=== PATIENT | male | born 1970 | race Two or more races ===

== ENCOUNTER 2021-09-29 17:09 | Inpatient (IN) | payer OTHER ==
[2021-09-29] MEDS ORDERED: LORazepam 2 MG/ML SDV VIAL IVPUSH ONE (23:33)
[2021-09-29] MEDS ORDERED: chlordiazePOXIDE HCL 25 MG CAPSULE PO ONE (23:35)
[2021-09-29] MEDS ORDERED: chlordiazePOXIDE HCL 25 MG CAPSULE ONE (23:36)
[2021-09-30 00:14] LABS: BASO % 0.5 % (0-2.0); EOS % 2.7 % (0-4.5); HEMOGLOBIN 10.6 GM/dL (11.7-16.9); LYMPH % 37.2 % (8-40); MCH 26.2 pg (25.7-33.7); MCHC 32.2 g/dl (32.0-35.9); MEAN CELL VOLUME 81.5 fl (80-96); MEAN PLT VOLUME 7.5 fl (7.5-11.1); MONO % 10.9 % (3.8-10.2); NEUT % 48.7 % (42.8-82.8); PLATELET COUNT 163 10^3/uL (134-434); RBC 4.06 M/mm3 (4.00-5.60); WHITE BLOOD COUNT 2.9 K/mm3 (4.0-10.0)
[2021-09-30 00:34] LABS: CHLORIDE 96 mmol/L (98-107); SODIUM 135 mmol/L (136-145)
[2021-09-30 00:36] LABS: ALBUMIN 4.1 g/dl (3.4-5.0); ANION GAP 9 MMOL/L (8-16); CALCIUM 9.2 mg/dL (8.5-10.1); CO2 31 mmol/L (21-32); GLUCOSE,RANDOM 97 mg/dL (74-106); MAGNESIUM 1.6 mg/dL (1.8-2.4)
[2021-09-30 00:39] LABS: CREATININE 0.5 mg/dL (0.55-1.3); SGOT/AST 40 U/L (15-37); SGPT/ALT 29 U/L (13-61)
[2021-09-30 00:40] LABS: BILIRUBIN,TOTAL 1.3 mg/dL (0.2-1)
[2021-09-30 00:41] LABS: TOT PROT 8.2 g/dl (6.4-8.2)
[2021-09-30 00:42] LABS: ALK PHOS 119 U/L (45-117)
[2021-09-30] MEDS ORDERED: MAGNESIUM OXIDE 400 MG TABLET (FP) PO ONE (02:53)
[2021-09-30] MEDS ORDERED: LORazepam 1 MG TABLET ONE ×3 (04:12→08:43)
[2021-09-30] MEDS ORDERED: MAGNESIUM OXIDE 400 MG TABLET (FP) ONE (04:12)
[2021-09-30] MEDS: LORazepam 1 MG TABLET PO SCH ×3 (04:15→16:58)
[2021-09-30] MEDS: LORazepam 1 MG TABLET PO PRN ×2 (04:56→08:45)
[2021-09-30] MEDS ORDERED: FOLIC ACID INJECTION - 1 MG, THIAMINE HCL 100 MG, MULTIVIT INJECTION ADULT 10 ML in SOD... IVPB ONE (05:00)
[2021-09-30] MEDS ORDERED: IBUPROFEN 400 MG TABLET (FP) PO ONE (07:34)
[2021-09-30] MEDS ORDERED: ENOXAPARIN NA (PORCINE) 40 MG/0.4 ML DISP.SYRIN SQ ONE (09:20)
[2021-09-30] MEDS ORDERED: PANTOPRAZOLE 20 MG TABLET PO ONE (09:20)
[2021-09-30] MEDS ORDERED: FOLIC ACID 1 MG TABLET (FP) ONE (09:20)
[2021-09-30] MEDS ORDERED: amLODIPine BESYLATE 10 MG TABLET (FP) ONE (09:20)
[2021-09-30] MEDS ORDERED: THIAMINE HCL 100 MG TABLET (FP) ONE (09:20)
[2021-09-30] MEDS: THIAMINE HCL 100 MG TABLET (FP) PO SCH (09:25)
[2021-09-30] MEDS: amLODIPine BESYLATE 10 MG TABLET (FP) PO SCH (09:25)
[2021-09-30] MEDS: FOLIC ACID 1 MG TABLET (FP) PO SCH (09:25)
[2021-09-30] MEDS: ENOXAPARIN NA (PORCINE) 40 MG/0.4 ML DISP.SYRIN SQ SCH (09:25)
[2021-09-30] MEDS ORDERED: PANTOPRAZOLE 20 MG TABLET PO SCH (10:00)
[2021-09-30 11:23] LABS: BASO % 0.3 % (0-2.0); EOS % 4.7 % (0-4.5); HEMATOCRIT 32.9 % (35.4-49); HEMOGLOBIN 10.8 GM/dL (11.7-16.9); LYMPH % 30.4 % (8-40); MCH 26.6 pg (25.7-33.7); MCHC 32.7 g/dl (32.0-35.9); MEAN CELL VOLUME 81.2 fl (80-96); MEAN PLT VOLUME 7.1 fl (7.5-11.1); NEUT % 53.6 % (42.8-82.8); PLATELET COUNT 148 10^3/uL (134-434); RBC 4.06 M/mm3 (4.00-5.60); RDW 19.8 % (11.9-15.9); WHITE BLOOD COUNT 3.6 K/mm3 (4.0-10.0)
[2021-09-30 11:48] LABS: BLOOD UREA NITROGEN 6.2 mg/dL (7-18); CALCIUM 9.5 mg/dL (8.5-10.1)
[2021-09-30 11:49] LABS: ALBUMIN 3.5 g/dl (3.4-5.0); MAGNESIUM 1.9 mg/dL (1.8-2.4)
[2021-09-30 11:52] LABS: CREATININE 0.5 mg/dL (0.55-1.3); PHOSPHOROUS 3.3 mg/dL (2.5-4.9)
[2021-09-30 11:54] LABS: BILIRUBIN,TOTAL 1.4 mg/dL (0.2-1)
[2021-09-30 12:02] VITALS: BMI 22.7
[2021-09-30] MEDS ORDERED: POTASSIUM CHLORIDE TABS 20 MEQ TABLET.ER (FP) PO ONE (13:35)
[2021-10-01] MEDS: SUCRALFATE 1 GM/10 ML UNIT DOSE CUPS PO SCH ×2 (00:10→09:06)
[2021-10-01] MEDS: THIAMINE HCL 100 MG TABLET (FP) PO SCH ×2 (00:10→09:05)
[2021-10-01] MEDS: LORazepam 1 MG TABLET PO SCH ×3 (00:11→11:35)
[2021-10-01] MEDS: amLODIPine BESYLATE 10 MG TABLET (FP) PO SCH (09:06)
[2021-10-01] MEDS: FOLIC ACID 1 MG TABLET (FP) PO SCH (09:06)
[2021-10-01] MEDS: ENOXAPARIN NA (PORCINE) 40 MG/0.4 ML DISP.SYRIN SQ SCH (09:06)
[2021-10-01] MEDS ORDERED: FLU VACC QS2021-22(6MOS UP)/PF 60 MCG/0.5 ML SYRINGE IM ONE (10:00)
[2021-10-01] MEDS ORDERED: PANTOPRAZOLE 40 MG TABLET PO SCH (10:00)
[2021-10-01 11:22] LABS: HEMOGLOBIN 10.8 GM/dL (11.7-16.9); MCH 26.7 pg (25.7-33.7); MCHC 32.9 g/dl (32.0-35.9); MEAN CELL VOLUME 81.3 fl (80-96); MEAN PLT VOLUME 7.6 fl (7.5-11.1); PLATELET COUNT 172 10^3/uL (134-434); RBC 4.06 M/mm3 (4.00-5.60); RDW 19.3 % (11.9-15.9); WHITE BLOOD COUNT 3.9 K/mm3 (4.0-10.0)
[2021-10-01 11:27] LABS: INR 1.13 (0.83-1.09)
[2021-10-01 11:37] LABS: CALCIUM 9.6 mg/dL (8.5-10.1)
[2021-10-01 11:38] LABS: ALBUMIN 3.6 g/dl (3.4-5.0); BLOOD UREA NITROGEN 6.9 mg/dL (7-18)
[2021-10-01 11:41] LABS: CREATININE 0.5 mg/dL (0.55-1.3)
[2021-10-01 11:43] LABS: BILIRUBIN,TOTAL 0.9 mg/dL (0.2-1); TOT PROT 7.6 g/dl (6.4-8.2)
[2021-10-01 15:27] VITALS: BP 117/80; PULSE 92; TEMP 98.5
[2021-10-02] MEDS ORDERED: LORazepam 0.5 MG TABLET PO PRN
[2021-10-02] MEDS ORDERED: LORazepam 0.5 MG TABLET PO SCH (05:00)
[2021-10-03] MEDS ORDERED: LORazepam 0.5 MG TABLET PO ONE (05:00)
== END 2021-10-01 16:37 | disposition other institution (70) | DRG 775 ==
LOC: JER 17:09 → JERBED 23:51 → INTOOBSV 23:51 → J5S 09-30 10:11 → OBSVTOIN 09-30 11:03 → J5S 09-30 18:52
PROVIDERS: ADMIT Hospitalist; ATTEND Internal Medicine
PROC: HZ2ZZZZ Detoxification Services for Substance Abuse Treatment (ICD-10-PCS; principal; 2021-09-29)
DX: F10.239 Alcohol dependence with withdrawal, unspecified (principal); D50.9 Iron deficiency anemia, unspecified; R00.0 Tachycardia, unspecified; D70.9 Neutropenia, unspecified; I10 Essential (primary) hypertension; E83.42 Hypomagnesemia; E87.1 Hypo-osmolality and hyponatremia
CPT/HCPCS: 36415; 71045-TC-FY; 80053; 80307; 82607; 82728; 82746; 83540; 83550; 83735; 84100; 84443; 85025; 85027; 85610; 85730; 90686; 93005; 93010; 99285-25; C9803-CS; G0008; G0378; U0003; U0005

== ENCOUNTER 2021-10-02 17:41 | Inpatient (IN) | payer OTHER ==
[2021-10-02 18:26] VITALS: BMI 22.7
[2021-10-02] MEDS ORDERED: ONDANSETRON *ODT* 4 MG TABLET SL PRN (18:53)
[2021-10-02] MEDS ORDERED: BENZOCAINE/MENTHOL (CHLORASEPTIC ) LOZENGE MM PRN (18:53)
[2021-10-02] MEDS ORDERED: IBUPROFEN 400 MG TABLET (FP) PO PRN (18:53)
[2021-10-02] MEDS ORDERED: NICOTINE POLACRILEX 2 MG GUM BUC PRN (18:53)
[2021-10-02] MEDS ORDERED: ACETAMINOPHEN 325 MG TABLET (FP) PO PRN ×2 (18:53)
[2021-10-02] MEDS ORDERED: DICYCLOMINE HCL 10 MG CAPSULE PO PRN (18:53)
[2021-10-02] MEDS ORDERED: MAGNESIUM HYDROX 2400MG/30ML ORAL SUSPENSION 30 ML CUP PO PRN (18:53)
[2021-10-02] MEDS ORDERED: IBUPROFEN 600 MG TABLET (FP) PO PRN (18:53)
[2021-10-02] MEDS ORDERED: MAGNESIUM CITRATE 300 ML BOTTLE PO PRN (18:53)
[2021-10-02] MEDS ORDERED: BISMUTH SUBSALICYLATE 524 MG/30 ML PO PRN (18:53)
[2021-10-02] MEDS ORDERED: MAG HYDROX/AL HYDROX/SIMETH 30 ML UNIT-DOSE CUP PO PRN (18:53)
[2021-10-02] MEDS ORDERED: LOPERAMIDE HCL 2 MG CAPSULE PO PRN (18:53)
[2021-10-02] MEDS ORDERED: THIAMINE HCL 100 MG TABLET (FP) PO SCH (22:00)
[2021-10-03] MEDS: THIAMINE HCL 100 MG TABLET (FP) PO SCH ×3 (00:20→22:23)
[2021-10-03] MEDS: SUCRALFATE 1 GM/10 ML UNIT DOSE CUPS PO SCH ×3 (00:20→22:25)
[2021-10-03] MEDS: FERROUS SO4 325 MG TABLET (FP) PO SCH ×3 (00:20→22:24)
[2021-10-03] MEDS ORDERED: diazePAM 5 MG TABLET ONE ×3 (01:39→10:39)
[2021-10-03] MEDS: diazePAM 5 MG TABLET PO SCH ×5 (01:41→22:24)
[2021-10-03] MEDS ORDERED: amLODIPine BESYLATE 5 MG TABLET (FP) ONE (10:39)
[2021-10-03] MEDS: amLODIPine BESYLATE 10 MG TABLET (FP) PO SCH ×2 (10:48)
[2021-10-03] MEDS: PRENATAL VITAMINS W/ FOLIC ACID TABLET (FP) PO SCH (11:44)
[2021-10-03] MEDS: PANTOPRAZOLE 40 MG TABLET PO SCH (11:44)
[2021-10-03] MEDS: FOLIC ACID 1 MG TABLET (FP) PO SCH (15:08)
[2021-10-03] MEDS: MELATONIN 5 MG TABLETS PO PRN (22:24)
[2021-10-03] MEDS: hydrOXYzine PAMOATE 25 MG CAPSULE (FP) PO PRN (22:25)
[2021-10-04] MEDS: diazePAM 5 MG TABLET PO SCH ×3 (05:26→22:22)
[2021-10-04] MEDS: FOLIC ACID 1 MG TABLET (FP) PO SCH (10:14)
[2021-10-04] MEDS: METHOCARBAMOL 500 MG TABLET PO PRN (10:14)
[2021-10-04] MEDS: amLODIPine BESYLATE 10 MG TABLET (FP) PO SCH (10:14)
[2021-10-04] MEDS: FERROUS SO4 325 MG TABLET (FP) PO SCH ×2 (10:14→22:22)
[2021-10-04] MEDS: PRENATAL VITAMINS W/ FOLIC ACID TABLET (FP) PO SCH (10:14)
[2021-10-04] MEDS: PANTOPRAZOLE 40 MG TABLET PO SCH (10:14)
[2021-10-04] MEDS: diazePAM 5 MG TABLET PO PRN (10:15)
[2021-10-04] MEDS: THIAMINE HCL 100 MG TABLET (FP) PO SCH ×2 (10:17→22:22)
[2021-10-04] MEDS: SUCRALFATE 1 GM/10 ML UNIT DOSE CUPS PO SCH ×2 (11:44→23:34)
[2021-10-04] MEDS: MELATONIN 5 MG TABLETS PO PRN (22:24)
[2021-10-05] MEDS: diazePAM 5 MG TABLET PO SCH ×2 (05:38→17:53)
[2021-10-05] MEDS: SUCRALFATE 1 GM/10 ML UNIT DOSE CUPS PO SCH ×2 (10:17→22:16)
[2021-10-05] MEDS: PRENATAL VITAMINS W/ FOLIC ACID TABLET (FP) PO SCH (10:19)
[2021-10-05] MEDS: FOLIC ACID 1 MG TABLET (FP) PO SCH (10:19)
[2021-10-05] MEDS: PANTOPRAZOLE 40 MG TABLET PO SCH (10:19)
[2021-10-05] MEDS: FERROUS SO4 325 MG TABLET (FP) PO SCH ×2 (10:19→22:16)
[2021-10-05] MEDS: amLODIPine BESYLATE 10 MG TABLET (FP) PO SCH (10:19)
[2021-10-05] MEDS: METHOCARBAMOL 500 MG TABLET PO PRN (10:19)
[2021-10-05] MEDS: diazePAM 5 MG TABLET PO PRN (10:20)
[2021-10-05] MEDS: THIAMINE HCL 100 MG TABLET (FP) PO SCH ×2 (10:20→22:16)
[2021-10-05] MEDS: hydrOXYzine PAMOATE 25 MG CAPSULE (FP) PO PRN (22:16)
[2021-10-06] MEDS: METHOCARBAMOL 500 MG TABLET PO PRN (05:46)
[2021-10-06] MEDS ORDERED: diazePAM 5 MG TABLET PO ONE (06:00)
[2021-10-06 06:46] VITALS: BP 130/98; PULSE 93; TEMP 97.7
== END 2021-10-06 08:53 | disposition home or self-care (01) | DRG 897 ==
LOC: YASAS 17:41 → Y6N 10-03 10:27
PROVIDERS: ADMIT Allergy & Immunology; ATTEND Surgery
PROC: HZ2ZZZZ Detoxification Services for Substance Abuse Treatment (ICD-10-PCS; principal; 2021-10-03)
DX: F10.230 Alcohol dependence with withdrawal, uncomplicated (principal); F17.210 Nicotine dependence, cigarettes, uncomplicated; D50.9 Iron deficiency anemia, unspecified; I10 Essential (primary) hypertension; K21.9 Gastro-esophageal reflux disease without esophagitis
CPT/HCPCS: 36415; 86780; C9803-CS; U0003; U0005